=== PATIENT | male | born 1995 | race Caucasian/White ===

== ENCOUNTER 2024-03-17 17:59 | Emergency (ER) | payer OTHER ==
[2024-03-17 18:22] VITALS: RESP 18
--- NOTE | 2024-03-17 18:24 | ED ---
General Adult HPI - General Source: patient, RN notes reviewed Mode of arrival: ambulatory Limitations: no limitations <Molly Mazariegos - Last Filed: 03/17/24 18:23> - General Source: patient, RN notes reviewed Mode of arrival: ambulatory Limitations: no limitations <Marlene Banks - Last Filed: 03/18/24 02:42> - General Chief complaint: Recheck/Abnormal Lab/Rx Stated complaint: blood in stool Time Seen by Provider: 03/17/24 18:18 - History of Present Illness Initial comments: Quick [id number] male presents emergency department chief complaint of bright red blood per rectum. Patient states that over the past 6 months he has been experiencing what he believes to be an internal hemorrhoid that will sometimes turn into an external hemorrhoid with straining and have to reduce. He states that today he has had a large quantity of bright red blood in his stool and will occasionally experience rectal pain as well. (Molly Mazariegos) This is a 28-year-old male who presents to the emergency department for rectal bleeding. Describes this as bright red blood. States that this has been an issue intermittently over the last 6 months and he believes that he has a hemor rhoid. States that when he strains this protrudes out of the rectum. He had much more blood than usual today, prompting him to come to the emergency department. However, the blood is only on toilet paper when he wipes, it is not in the toilet bowl. This is not always painful. Not currently on any treatment for this. (Marlene Banks) - Related Data Previous Rx's Medication Instructions Recorded Hydrocortisone Suppository 25 mg RECTAL BID #24 suppositor 03/17/24 [Anusol-Hc] Allergies Allergy/AdvReac Type Severity Reaction Status Date / Time amoxicillin Allergy Anaphylaxis Verified 03/17/24 20:22 Review of Systems ROS Other: All systems not noted in ROS Statement are negative. <Molly Mazariegos - Last Filed: 03/17/24 18:23> ROS Other: All systems not noted in ROS Statement are negative. <Marlene Banks - Last Filed: 03/18/24 02:42> ROS Statement: Those systems with pertinent positive or pertinent negative responses have been documented in the HPI. Past Medical History Past Medical History: No Reported History History of Any Multi-Drug Resistant Organisms: None Reported Past Surgical History: No Surgical Hx Reported Past Psychological History: No Psychological Hx Reported Smoking Status: Vaper Past Alcohol Use History: Occasional Past Drug Use History: None Reported <Felton Mazariegosoe - Last Filed: 03/17/24 18:23> General Exam Limitations: no limitations <Felton Mazariegosoe - Last Filed: 03/17/24 18:23> Limitations: no limitations General appearance: alert, in no apparent distress Head exam: Present: atraumatic, normocephalic, normal inspection Respiratory exam: Present: normal lung sounds bilaterally. Absent: respiratory distress, wheezes, rales, rhonchi, stridor Cardiovascular Exam: Present: regular rate, normal rhythm, normal heart sounds. Absent: systolic murmur, diastolic murmur, rubs, gallop, clicks GI/Abdominal exam: Present: soft, normal bowel sounds. Absent: distended, tenderness, guarding, rebound, rigid Rectal exam: Present: normal inspection. Absent: hemorrhoids Neurological exam: Present: alert, oriented X3, CN II-XII intact Psychiatric exam: Present: normal affect, normal mood Skin exam: Present: warm, dry, intact, normal color. Absent: rash <Marlene Banks - Last Filed: 03/18/24 02:42> - General Exam Comments Initial Comments: Visual Physical Exam Vital signs reviewed General: Well-appearing, nontoxic, no acute distress. Head: Normocephalic, atraumatic Eyes: PERRLA, EOMI ENT: Airway patent Chest: Nonlabored breathing Skin: No visual rash, normal skin tone Neuro: Alert and oriented 3 Musculoskeletal: No gross abnormalities (Stieler,Molly) Course Vital Signs 03/17/24 03/17/24 18:18 21:22 Temperature 98 F 98.1 F Pulse Rate 72 75 Respiratory 18 18 Rate Blood Pressure 122/86 104/75 O2 Sat by Pulse 100 100 Oximetry Medical Decision Making <Molly Mazariegos - Last Filed: 03/17/24 18:23> - Lab Data Result diagrams: 03/17/24 19:35 03/17/24 19:35 <Marlene Banks - Last Filed: 03/18/24 02:42> - Medical Decision Making I completed the quick note portion of this chart signed Molly Mazariegos PA-C (Molly Mazariegos) This is a 28 year old male who presents to the emergency department for rectal bleeding. Was pt. sent in by a medical professional or institution? @ -No Did you speak to anyone other than the patient for history? @ -No Did you review nursing and triage notes? @ -Yes, and I agree, it is accurate with regards to the patient's symptoms. Were old charts reviewed? @ -No Differential Diagnosis? @ -Differential GI Bleed: Esophageal varices, aortoenteric fistula, Bibiana-Shannon, gastritis, peptic ulcer disease, diverticulosis, inflammatory bowel disease, hemorrhoids, fissure, colitis, malignancy, Meckel's diverticulum, this is not meant to be an all- inclusive list. EKG interpreted by me (3pts min.)? @ -Not obtained X-rays interpreted by me (1pt min.)? @ -Not obtained CT interpreted by me (1pt min.)? @ -Not obtained U/S interpreted by me (1pt. min.)? @ -Not obtained What testing was considered but not performed? (CT, X-rays, U/S, labs)? Why? @ -None What meds were considered but not given? Why? @ -None Did you discuss the management of the patient with other professionals? @ -No Did you reconcile home meds? @ -No Was smoking cessation discussed for >3mins.? @ -No Was critical care preformed (if so, how long)? @ -No Were there social determinants of health that impacted care today? How? (Homelessness, low income, unemployed, alcoholism, drug addiction, transportation, low edu. Level, literacy, decrease access to med. care, penitentiary, rehab)? @ -No Was there de-escalation of care discussed even if they declined? (Discuss DNR or withdrawal of care, Hospice)? @ -No What co-morbidities impacted this encounter? (DM, HTN, Smoking, COPD, CAD, Cancer, CVA, Hep., AIDS, mental health diagnosis, sleep apnea, morbid obesity)? @ -None Was patient admitted / discharged? @ -Discharged. Lab work unremarkable. There was not any active bleeding or obvious hemorrhoids on exam. The description of his symptoms is consistent with an internal hemorrhoid. He was given a prescription for hydrocortisone suppositories. We also discussed increasing fiber intake and stool softeners such as psyllium, and sitz bath's. Information for general surgery follow-up pr ovided to discuss further management. Case discussed with ED attending Dr. Schwarz. Return precautions reviewed in depth, the patient is instructed to return to the emergency department with any new, worsening, or concerning symptoms. Patient verbalized understanding. Undiagnosed new problem with uncertain prognosis? @ -None Drug Therapy requiring intensive monitoring for toxicity (Heparin, Nitro, Insulin, Cardizem)? @ -None Were any procedures done? @ -None Diagnosis/symptom? @ -Internal hemorrhoid Acute, or Chronic, or Acute on Chronic? @ -Chronic Uncomplicated (without systemic symptoms) or Complicated (systemic symptoms)? @ -Uncomplicated Side effects of treatment? @ -None Exacerbation, Progression, or Severe Exacerbation] @ -Potential progression Poses a threat to life or bodily function? @ -No (Marlene Banks) - Lab Data Lab Results 03/17/24 03/17/24 03/17/24 Range/Units 19:35 19:35 19:35 WBC 4.5 (3.8-10.6) k/uL RBC 4.65 (4.30-5.90) m/uL Hgb 14.0 (13.0-17.5) gm/dL Hct 41.6 (39.0-53.0) % MCV 89.4 (80.0-100.0) fL MCH 30.2 (25.0-35.0) pg MCHC 33.8 (31.0-37.0) g/dL RDW 12.7 (11.5-15.5) % Plt Count 215 (150-450) k/uL MPV 6.7 Neutrophils % 58 % Lymphocytes % 31 % Monocytes % 7 % Eosinophils % 3 % Basophils % 0 % Neutrophils # 2.6 (1.3-7.7) k/uL Lymphocytes # 1.4 (1.0-4.8) k/uL Monocytes # 0.3 (0-1.0) k/uL Eosinophils # 0.1 (0-0.7) k/uL Basophils # 0.0 (0-0.2) k/uL PT 12.1 (10.0-12.5) sec INR 1.1 (<1.2) APTT 26.1 (22.0-30.0) sec Sodium 137 (137-145) mmol/L Potassium 4.2 (3.5-5.1) mmol/L Chloride 104 (98-107) mmol/L Carbon Dioxide 30 (22-30) mmol/L Anion Gap 3 mmol/L BUN 9 (9-20) mg/dL Creatinine 1.00 (0.66-1.25) mg/dL Est GFR (CKD-EPI)AfAm >90 (>60 ml/min/1.73 sqM) Est GFR (CKD-EPI)NonAf >90 (>60 ml/min/1.73 sqM) Glucose 86 (74-99) mg/dL Calcium 9.2 (8.4-10.2) mg/dL Total Bilirubin 1.0 (0.2-1.3) mg/dL AST 50 (17-59) U/L ALT 67 H (4-49) U/L Alkaline Phosphatase 44 (38-126) U/L Total Protein 6.7 (6.3-8.2) g/dL Albumin 4.2 (3.5-5.0) g/dL Disposition <Molly Mazariegos - Last Filed: 03/17/24 18:23> Is patient prescribed a controlled substance at d/c from ED?: No Time of Disposition: 20:33 <Marlene Banks - Last Filed: 03/18/24 02:42> Clinical Impression: Internal hemorrhoid Disposition: HOME SELF-CARE Instructions (If sedation given, give patient instructions): Hemorrhoids (ED) Additional Instructions: Return to the emergency department with any new, worsening, or concerning symp toms. Use hydrocortisone suppositories twice daily for 2 weeks. You can use the hydrocortisone cream provided for any discomfort. Take stool softeners such as psyllium, follow a high-fiber diet, and you can also try sitz bath's. Contact the general surgery office listed below for further evaluation and discussion of additional management options. Prescriptions: Hydrocortisone Suppository [Anusol-Hc] 25 mg RECTAL BID #24 suppositor Referrals: [facility]inic [Primary Care Provider] - 1-2 days Moi Hendrix MD [STAFF PHYSICIAN] - 1-2 days
[2024-03-17] MEDS: HYDROCORTISONE 2.5% RECTAL CREAM 30 GM TUBE RECTAL STA (19:50)
[2024-03-17 19:53] LABS: Basophils % (A) 0 %; Eosinophils # (A) 0.1 k/uL (0-0.7); Eosinophils % (A) 3 %; HCT 41.6 % (39.0-53.0); Lymphocytes # (A) 1.4 k/uL (1.0-4.8); Lymphocytes % (A) 31 %; MCH 30.2 pg (25.0-35.0); MCHC 33.8 g/dL (31.0-37.0); MCV 89.4 fL (80.0-100.0); Mean Platelet Volume 6.7; Monocytes # (A) 0.3 k/uL (0-1.0); Monocytes % (A) 7 %; Neutrophils # (A) 2.6 k/uL (1.3-7.7); Neutrophils % (A) 58 %; Platelet Count 215 k/uL (150-450); RBC 4.65 m/uL (4.30-5.90); RDW 12.7 % (11.5-15.5); WBC 4.5 k/uL (3.8-10.6)
[2024-03-17 20:10] LABS: ALT 67 U/L (4-49); AST 50 U/L (17-59); African American GFR (CKD) >90 (>60 ml/min/1.73 sqM); Albumin 4.2 g/dL (3.5-5.0); Alkaline Phosphatase 44 U/L (38-126); Anion Gap 3 mmol/L; Blood Urea Nitrogen 9 mg/dL (9-20); Calcium 9.2 mg/dL (8.4-10.2); Carbon Dioxide 30 mmol/L (22-30); Chloride 104 mmol/L (98-107); Glucose 86 mg/dL (74-99); Non-African American GFR(CKD) >90 (>60 ml/min/1.73 sqM); Potassium 4.2 mmol/L (3.5-5.1); Sodium 137 mmol/L (137-145); Total Protein 6.7 g/dL (6.3-8.2)
[2024-03-17 20:13] LABS: INR 1.1 (<1.2); Partial Thromboplastin Time 26.1 sec (22.0-30.0); Prothrombin Time 12.1 sec (10.0-12.5)
[2024-03-17] MEDS: HYDROCORTISONE SUPPOSITORY 25 MG SUPP RECTAL STA (20:17)
[2024-03-17 21:24] VITALS: BP 104/75; PULSE 75; TEMP 98.1
== END 2024-03-17 21:24 | disposition home or self-care (01) ==
LOC: EC 17:59
CPT/HCPCS: 36415; 80053; 85025; 85610; 85730; 99284

== ENCOUNTER 2024-06-10 22:41 | Emergency (ER) | payer OTHER ==
--- NOTE | 2024-06-10 23:42 | ED ---
Nausea/Vomiting/Diarrhea HPI - General Chief complaint: Nausea/Vomiting/Diarrhea Stated complaint: Vomit Blood Time Seen by Provider: 06/10/24 23:41 Source: patient, RN notes reviewed, old records reviewed Mode of arrival: ambulatory Limitations: no limitations - History of Present Illness Initial comments: 28-year-old male presenting to the ER with a chief complaint of nausea and vomiting. Patient states since this morning he has been unable to keep anything down and having persistent nausea and feeling like he is going to throw up. Patient reports he tried to eat cereal this morning but states he threw it up. He states while eating the cereal he felt a burning sensation in his throat. He does report a history of acid reflux and has not been taking his medications as prescribed. Patient does report 1 episode of bright red streaking in his emesis. He denies any blood thinner use. Patient reports a mild epigastric abdominal pain. No history of bowel surgeries. Patient denies any fevers or chills. He has not tried any medications for his symptoms at this time. He has tried taking a shower without relief. He denies any cough, congestion, runny nose, chest pain, shortness of breath, diarrhea/constipation, urinary complaints or peripheral edema. - Related Data Previous Rx's Medication Instructions Recorded Hydrocortisone Suppository 25 mg RECTAL BID #24 suppositor 03/17/24 [Anusol-Hc] Allergies Allergy/AdvReac Type Severity Reaction Status Date / Time amoxicillin Allergy Anaphylaxis Verified 06/10/24 22:45 Review of Systems ROS Statement: Those systems with pertinent positive or pertinent negative responses have been documented in the HPI. ROS Other: All systems not noted in ROS Statement are negative. Past Medical History Past Medical History: No Reported History History of Any Multi-Drug Resistant Organisms: None Reported Past Surgical History: Tonsillectomy Past Psychological History: No Psychological Hx Reported Smoking Status: Vaper Past Alcohol Use History: Occasional Past Drug Use History: None Reported General Exam Limitations: no limitations General appearance: alert, in no apparent distress Respiratory exam: Present: normal lung sounds bilaterally. Absent: respiratory distress, wheezes, rales, rhonchi, stridor Cardiovascular Exam: Present: normal rhythm, tachycardia, normal heart sounds GI/Abdominal exam: Present: soft, tenderness (mild RUQ), normal bowel sounds Neurological exam: Present: alert, oriented X3, CN II-XII intact Skin exam: Present: warm, dry, intact, normal color. Absent: rash Course Vital Signs 06/10/24 06/11/24 22:42 00:50 Temperature 97.5 F L 97.9 F Pulse Rate 115 H 112 H Respiratory 22 18 Rate Blood Pressure 114/83 132/66 O2 Sat by Pulse 98 99 Oximetry - Reevaluation(s) Reevaluation #1: 06/11/24 02:15 Case discussed with [facility] physician, Dr. Spaulding, who advised on transfer for GI consultation. 06/11/24 02:39 Case discussed with [facility] lens generator, Dr. Solano who accepts transfer. Medical Decision Making - Medical Decision Making Was pt. sent in by a medical professional or institution (, PA, CLOCK AND WATCH HANDS DIPPER, urgent care, hospital, or senior living...) When possible be specific @ -No Did you speak to anyone other than the patient for history (EMS, parent, family, police, friend...)? What history was obtained from this source @ -Significant other, at bedside, aiding in HPI and past medical history. Did you review nursing and triage notes (agree or disagree)? Why? @ -I reviewed and agree with nursing and triage notes Were old charts reviewed (outside hosp., previous admission, EMS record, old EKG, old radiological studies, urgent care reports/EKG's, senior living records)? Report findings @ -I reviewed ER visit from 03-17-2024. Patient evaluated for rectal bleeding. Patient diagnosed with internal hemorrhoid and given prescription for hydro cortisone suppository. Differential Diagnosis (chest pain, altered mental status, abdominal pain women, abdominal pain men, vaginal bleeding, weakness, fever, dyspnea, syncope, headache, dizziness, GI bleed, back pain, seizure, CVA, palpatations, mental health, musculoskeletal)? @ -Differential Abdominal Pain Men:Appendicitis, cholecystitis, diverticulosis, ischemic bowel, pancreatitis, hepatitis, UTI, gastroenteritis, AAA, incarcerated hernia, bowel obstruction, constipation, inflammatory bowel, hepatitis, peptic ulcer disease, splenic infarction, perforated viscus, testicular torsion, this is not meant to be an all-inclusive list EKG interpreted by me (3pts min.). @ -As above X-rays interpreted by me (1pt min.). @ -None done CT interpreted by me (1pt min.). @ -CT abdomen pelvis with IV contrast showing possibly multifocal uncomplicated acute colitis. Poorly distended bladder has mild to moderate concentric wall thickening. Moderate to severe rectal fecal prominence or constipation. No bowel obstruction. U/S interpreted by me (1pt. min.). @ -Gallbladder ultrasound negative for stones or acute evidence of acute cholecystitis. What testing was considered but not performed or refused? (CT, X-rays, U/S, labs)? Why? @ -None What meds were considered but not given or refused? Why? @ -None Did you discuss the management of the patient with other professionals (professionals i.e. Dr., PA, CLOCK AND WATCH HANDS DIPPER, lab, RT, psych nurse, health care social worker, siphoner, teacher, amphibious operations officer, case preparer and liner)? Give summary @ -Case was discussed with [facility] physician, Dr. Spaulding, who advised on transfer for gastroenterology consultation. Case discussed with [facility], Dr. Solano, who accepts transfer. Was smoking cessation discussed for >3mins.? @ -I discussed smoking cessation for greater than 3 minutes. The risk of smoking were discussed with the patient including but not limited to risks of cancer, stroke, coronary artery disease and COPD. Also discussed with patient were multiple methods of quitting smoking. Lastly we discussed the financial cost of smoking. Was critical care preformed (if so, how long)? @ -Yes 31 minutes. Were there social determinants of health that impacted care today? How? (Homelessness, low income, unemployed, alcoholism, drug addiction, transportation, low edu. Level, literacy, decrease access to med. care, retirement, rehab)? @ -No Was there de-escalation of care discussed even if they declined (Discuss DNR or withdrawal of care, Hospice)? DNR status @ -No What co-morbidities impacted this encounter? (DM, HTN, Smoking, COPD, CAD, Cancer, CVA, ARF, Chemo, Hep., AIDS, mental health diagnosis, sleep apnea, morbid obesity)? @ -None Was patient admitted / discharged? Hospital course, mention meds given and route, prescriptions, significant lab abnormalities, going to OR and other pertinent info. @ -Transferred. 28-year-old male presented the ER with a chief complaint of persistent nausea and vomiting. Patient seen here on 03-17-2024 for rectal blee ding diagnosed with internal hemorrhoids. History and physical exam completed. Vitals upon arrival remarkable for a temperature 97.5, heart rate 115, respiratory rate 22, blood pressure 114/83, oxygen saturation 98% on room air. Patient no signs of acute distress nontoxic-appearing. Exam remarkable for mild right upper quadrant abdominal tenderness with normal bowel sounds. No rebound or guarding. No active vomiting on exam. Laboratory studies and gallbladder ultrasound will be obtained along with symptomatic control, patient is agreeable. CBC remarkable for a leukocytosis of 17.6 with a left shift. Sodium 142, potassium 4.9, chloride 104. Lactic of 9.7. Total bilirubin 1.1 AST 70, ALT 58. Lipase 38. Patient given 2 L IV bolus in the ER for lactic acidosis. Patient also started on maintenance fluids at 130cc per hour. Patient received IV Pepcid, Zofran for symptom control with improvement on reevaluation. Gallbladder ultrasound negative. CT performed at that time given laboratory study abnormalities. CT abdomen pelvis showing possible multifocal uncomplic ated acute colitis. Due to concern of dehydration and colitis rule out inflammatory bowel disease admission was considered and discussed with [facility] physician, Dr. Spaulding, who advised on transfer for gastroenterology consultation. Case was then discussed with [facility], Dr. Solano, who accepts transfer. Patient remained stable throughout ER evaluation. Patient is agreeable for transfer. Patient transferred via EMS to [facility] for further evaluation and treatment. Case discussed with the attending, Dr. Power. Undiagnosed new problem with uncertain prognosis? @ -No Drug Therapy requiring intensive monitoring for toxicity (Heparin, Nitro, Insulin, Cardizem)? @ -No Were any procedures done? @ -No Diagnosis/symptom? @ -Leukocytosis/lactic acidosis/acute colitis Acute, or Chronic, or Acute on Chronic? @ -Acute Uncomplicated (without systemic symptoms) or Complicated (systemic symptoms)? @ -Complicated Side effects of treatment? @ -No Exacerbation, Progression, or Severe Exacerbation? @ -No Poses a threat to life or bodily function? How? (Chest pain, USA, VT, pneumonia, PE, COPD, DKA, ARF, appy, cholecystitis, CVA, Diverticulitis, Homicidal, Suicidal, threat to staff... and all critical care pts) @ -Yes - Lab Data Result diagrams: 06/10/24 23:15 06/10/24 23:15 Lab Results 06/10/24 06/10/24 06/10/24 Range/Units 23:15 23:15 23:15 WBC 17.6 H (3.8-10.6) k/uL RBC 5.17 (4.30-5.90) m/uL Hgb 16.1 (13.0-17.5) gm/dL Hct 46.6 (39.0-53.0) % MCV 90.2 (80.0-100.0) fL MCH 31.1 (25.0-35.0) pg MCHC 34.5 (31.0-37.0) g/dL RDW 12.7 (11.5-15.5) % Plt Count 273 (150-450) k/uL MPV 8.1 Neutrophils % 84 % Lymphocytes % 11 % Monocytes % 4 % Eosinophils % 0 % Basophils % 0 % Neutrophils # 14.8 H (1.3-7.7) k/uL Lymphocytes # 1.9 (1.0-4.8) k/uL Monocytes # 0.7 (0-1.0) k/uL Eosinophils # 0.0 (0-0.7) k/uL Basophils # 0.0 (0-0.2) k/uL Sodium 142 (137-145) mmol/L Potassium 4.9 (3.5-5.1) mmol/L Chloride 104 (98-107) mmol/L Carbon Dioxide 13 L (22-30) mmol/L Anion Gap 25 mmol/L BUN 14 (9-20) mg/dL Creatinine 1.18 (0.66-1.25) mg/dL Est GFR (CKD-EPI)AfAm >90 (>60 ml/min/1.73 sqM) Est GFR (CKD-EPI)NonAf 84 (>60 ml/min/1.73 sqM) Glucose 59 L (74-99) mg/dL POC Glucose (mg/dL) (70-110) mg/dL POC Glu Commercial Account Officer ID Lactic Ac Sepsis Rflx Plasma Lactic Acid Cesar 9.7 H* (0.7-2.0) mmol/L Calcium 9.4 (8.4-10.2) mg/dL Total Bilirubin 1.1 (0.2-1.3) mg/dL AST 70 H (17-59) U/L ALT 58 H (4-49) U/L Alkaline Phosphatase 63 (38-126) U/L Total Protein 8.5 H (6.3-8.2) g/dL Albumin 5.6 H (3.5-5.0) g/dL Amylase 43 (30-110) U/L Lipase 38 (23-300) U/L Urine Color Urine Appearance (Clear) Urine pH (5.0-8.0) Ur Specific Brodnax (1.001-1.035) Urine Protein (Negative) Urine Glucose (UA) (Negative) Urine Ketones (Negative) Urine Blood (Negative) Urine Nitrite (Negative) Urine Bilirubin (Negative) Urine Urobilinogen (<2.0) mg/dL Ur Leukocyte Esterase (Negative) Influenza Type A (PCR) (Not Detectd) Influenza Type B (PCR) (Not Detectd) RSV (PCR) (Not Detectd) SARS-CoV-2 (PCR) (Not Detectd) 06/11/24 06/11/24 06/11/24 Range/Units 00:25 00:39 00:45 WBC (3.8-10.6) k/uL RBC (4.30-5.90) m/uL Hgb (13.0-17.5) gm/dL Hct (39.0-53.0) % MCV (80.0-100.0) fL MCH (25.0-35.0) pg MCHC (31.0-37.0) g/dL RDW (11.5-15.5) % Plt Count (150-450) k/uL MPV Neutrophils % % Lymphocytes % % Monocytes % % Eosinophils % % Basophils % % Neutrophils # (1.3-7.7) k/uL Lymphocytes # (1.0-4.8) k/uL Monocytes # (0-1.0) k/uL Eosinophils # (0-0.7) k/uL Basophils # (0-0.2) k/uL Sodium (137-145) mmol/L Potassium (3.5-5.1) mmol/L Chloride (98-107) mmol/L Carbon Dioxide (22-30) mmol/L Anion Gap mmol/L BUN (9-20) mg/dL Creatinine (0.66-1.25) mg/dL Est GFR (CKD-EPI)AfAm (>60 ml/min/1.73 sqM) Est GFR (CKD-EPI)NonAf (>60 ml/min/1.73 sqM) Glucose (74-99) mg/dL POC Glucose (mg/dL) 52 L (70-110) mg/dL POC Glu Commercial Account Officer ID Maile Granda Lactic Ac Sepsis Rflx Y Plasma Lactic Acid Cesar (0.7-2.0) mmol/L Calcium (8.4-10.2) mg/dL Total Bilirubin (0.2-1.3) mg/dL AST (17-59) U/L ALT (4-49) U/L Alkaline Phosphatase (38-126) U/L Total Protein (6.3-8.2) g/dL Albumin (3.5-5.0) g/dL Amylase (30-110) U/L Lipase (23-300) U/L Urine Color Urine Appearance (Clear) Urine pH (5.0-8.0) Ur Specific Bro[place]ax (1.001-1.035) Urine Protein (Negative) Urine Glucose (UA) (Negative) Urine Ketones (Negative) Urine Blood (Negative) Urine Nitrite (Negative) Urine Bilirubin (Negative) Urine Urobilinogen (<2.0) mg/dL Ur Leukocyte Esterase (Negative) Influenza Type A (PCR) Not Detected (Not Detectd) Influenza Type B (PCR) Not Detected (Not Detectd) RSV (PCR) Not Detected (Not Detectd) SARS-CoV-2 (PCR) Not Detected (Not Detectd) 06/11/24 06/11/24 06/11/24 Range/Units 01:00 01:37 02:02 WBC (3.8-10.6) k/uL RBC (4.30-5.90) m/uL Hgb (13.0-17.5) gm/dL Hct (39.0-53.0) % MCV (80.0-100.0) fL MCH (25.0-35.0) pg MCHC (31.0-37.0) g/dL RDW (11.5-15.5) % Plt Count (150-450) k/uL MPV Neutrophils % % Lymphocytes % % Monocytes % % Eosinophils % % Basophils % % Neutrophils # (1.3-7.7) k/uL Lymphocytes # (1.0-4.8) k/uL Monocytes # (0-1.0) k/uL Eosinophils # (0-0.7) k/uL Basophils # (0-0.2) k/uL Sodium (137-145) mmol/L Potassium (3.5-5.1) mmol/L Chloride (98-107) mmol/L Carbon Dioxide (22-30) mmol/L Anion Gap mmol/L BUN (9-20) mg/dL Creatinine (0.66-1.25) mg/dL Est GFR (CKD-EPI)AfAm (>60 ml/min/1.73 sqM) Est GFR (CKD-EPI)NonAf (>60 ml/min/1.73 sqM) Glucose (74-99) mg/dL POC Glucose (mg/dL) 57 L 64 L (70-110) mg/dL POC Glu Commercial Account Officer ID Maile Hobbsnnhattie Granda Lactic Ac Sepsis Rflx Plasma Lactic Acid Cesar (0.7-2.0) mmol/L Calcium (8.4-10.2) mg/dL Total Bilirubin (0.2-1.3) mg/dL AST (17-59) U/L ALT (4-49) U/L Alkaline Phosphatase (38-126) U/L Total Protein (6.3-8.2) g/dL Albumin (3.5-5.0) g/dL Amylase (30-110) U/L Lipase (23-300) U/L Urine Color Colorless Urine Appearance Clear (Clear) Urine pH 5.0 (5.0-8.0) Ur Specific Brodnax 1.018 (1.001-1.035) Urine Protein Trace H (Negative) Urine Glucose (UA) Negative (Negative) Urine Ketones 3+ H (Negative) Urine Blood Negative (Negative) Urine Nitrite Negative (Negative) Urine Bilirubin Negative (Negative) Urine Urobilinogen <2.0 (<2.0) mg/dL Ur Leukocyte Esterase Negative (Negative) Influenza Type A (PCR) (Not Detectd) Influenza Type B (PCR) (Not Detectd) RSV (PCR) (Not Detectd) SARS-CoV-2 (PCR) (Not Detectd) - EKG Data -: EKG Interpreted by Me EKG Comments: EKG taken at 00: 52 showing a sinus tachycardia. No acute ST segment elevations. No T wave abnormalities. Ventricular rate 110, UT interval 145, QRS duration 97, QT/QTc 331/396. - Radiology Data Radiology results: report reviewed, image reviewed Disposition Clinical Impression: Lactic acidosis, Leukocytosis, Acute colitis Disposition: OTHER INSTITUTION NOT DEFINED Condition: Stable Referrals: [facility],Clinic [Primary Care Provider] - 1-2 days Time of Disposition: 02:52 - Out of Hospital Transfer - Req. Specs Out of Hospital Transfer - Requested Specifics: Other Emergency Center ([facility] )
[2024-06-10 23:57] LABS: Basophils % (A) 0 %; Eosinophils % (A) 0 %; HCT 46.6 % (39.0-53.0); HGB 16.1 gm/dL (13.0-17.5); Lymphocytes # (A) 1.9 k/uL (1.0-4.8); Lymphocytes % (A) 11 %; MCH 31.1 pg (25.0-35.0); MCHC 34.5 g/dL (31.0-37.0); MCV 90.2 fL (80.0-100.0); Mean Platelet Volume 8.1; Monocytes # (A) 0.7 k/uL (0-1.0); Monocytes % (A) 4 %; Neutrophils # (A) 14.8 k/uL (1.3-7.7); Neutrophils % (A) 84 %; Platelet Count 273 k/uL (150-450); RBC 5.17 m/uL (4.30-5.90); RDW 12.7 % (11.5-15.5); WBC 17.6 k/uL (3.8-10.6)
[2024-06-11 00:01] LABS: ALT 58 U/L (4-49); AST 70 U/L (17-59); African American GFR (CKD) >90 (>60 ml/min/1.73 sqM); Albumin 5.6 g/dL (3.5-5.0); Alkaline Phosphatase 63 U/L (38-126); Amylase 43 U/L (30-110); Anion Gap 25 mmol/L; Blood Urea Nitrogen 14 mg/dL (9-20); Calcium 9.4 mg/dL (8.4-10.2); Carbon Dioxide 13 mmol/L (22-30); Chloride 104 mmol/L (98-107); Glucose 59 mg/dL (74-99); Lipase 38 U/L (23-300); Non-African American GFR(CKD) 84 (>60 ml/min/1.73 sqM); Potassium 4.9 mmol/L (3.5-5.1); Sodium 142 mmol/L (137-145); Total Bilirubin 1.1 mg/dL (0.2-1.3); Total Protein 8.5 g/dL (6.3-8.2)
[2024-06-11] MEDS: FAMOTIDINE 20 MG/2 ML VIAL IV STA (00:28)
[2024-06-11] MEDS: ONDANSETRON 4 MG/2 ML VIAL IVP STA (00:28)
[2024-06-11] MEDS: SODIUM CHLORIDE 0.9% 1,000 ML IV STA ×3 (00:34→03:01)
[2024-06-11 00:48] LABS: Glucose,Whole Blood 52 mg/dL (70-110)
[2024-06-11 00:54] VITALS: RESP 18
--- NOTE | 2024-06-11 00:55 | US ---
EXAMINATION TYPE: US gallbladder DATE OF EXAM: 06/11/2024 COMPARISON: NONE CLINICAL INDICATION: Male, 28 years old with history of nausea and vomiting; N&V TECHNIQUE: Grayscale and color Doppler imaging of the right upper quadrant was performed. FINDINGS: EXAM MEASUREMENTS: Liver Length: 14.5 cm Gallbladder Wall: 0.1 cm CBD: 0.5 cm Right Kidney: 10.0 x 3.5 x 4.8 cm CATERER HELPER NOTES: Pt not able to tolerate probe pressure well during exam Pancreas: wnl, tail obscured by overlying bowel gas Liver: Visualized portions appeared wnl Gallbladder: wnl Evidence for sonographic Yao's sign: No CBD: wnl Right Kidney: No evidence of hydro Slightly suboptimal study. IMPRESSION: No gallstones or ultrasound evidence for acute cholecystitis. [facility], , 06/11/2024 12:53 AM
--- NOTE | 2024-06-11 01:23 | CT ---
EXAMINATION TYPE: CT abdomen pelvis w con DATE OF EXAM: 06/11/2024 COMPARISON: None. HISTORY: coughing up blood and n/v CT DLP: 600.9 mGycm, Automated Exposure Control for Dose Reduction was Utilized. CONTRAST: CT scan of the abdomen and pelvis is performed without oral and with IV Contrast, patient injected wi th 100ml mL of Isovue 300. FINDINGS: LUNG BASES: No significant abnormality is appreciated. LIVER/GB: Liver is heterogeneously hypodense consistent with diffuse fatty infiltrative hepatocellula r disease. No biliary dilatation. PANCREAS: No significant abnormality is seen. SPLEEN: No significant abnormality is seen. ADRENALS: No significant abnormality is seen. KIDNEYS: Symmetric excretion without hydronephrosis. [id number] concentric wall thickening in t he poorly distended urinary bladder. BOWEL: Syzz-yp-lovkaeun wall thickening from the hepatic flexure to the distal transverse colon. No a bnormal small or large bowel dilatation. There is moderate to severe fecal prominence in the rectum. Mild wall thickening in the right colon. Cecum is low-lying into the right pelvis. PROSTATE/SEMINAL VESICLES: No gross abnormality seen. LYMPH NODES: No greater than 1cm abdominal or pelvic lymph nodes are appreciated. OSSEOUS STRUCTURES: No significant abnormality is seen. OTHER: No significant additional abnormality is seen. IMPRESSION: 1. Possible multifocal uncomplicated acute colitis. Differential includes infectious and/or inflammat ory etiologies. Correlate clinically. 2. Poorly distended bladder has mild to moderate concentric wall thickening. Cannot exclude acute debbie dder infection in the appropriate setting, correlate clinically. [facility], , 06/11/2024 1:20 AM
[2024-06-11 01:39] LABS: Glucose,Whole Blood 57 mg/dL (70-110)
[2024-06-11 01:45] LABS: Appearance,Urine Clear (Clear); Bilirubin,Urine Negative (Negative); Blood,Urine Negative (Negative); Color,Urine Colorless; Glucose,Urine (UA) Negative (Negative); Ketones,Urine 3+ (Negative); Leukocyte Esterase,Urine Negative (Negative); Nitrite,Urine Negative (Negative); Protein,Urine Trace (Negative); Specific Gravity,Urine 1.018 (1.001-1.035); Urobilinogen,Urine <2.0 mg/dL (<2.0)
[2024-06-11 02:04] LABS: Glucose,Whole Blood 64 mg/dL (70-110)
[2024-06-11 02:57] LABS: Glucose,Whole Blood 71 mg/dL (70-110)
[2024-06-11 03:28] VITALS: BP 108/52; PULSE 108; TEMP 98.4
== END 2024-06-11 03:48 | disposition other institution (70) ==
LOC: EC 22:41
DX: K52.9 Noninfective gastroenteritis and colitis, unspecified (principal); E87.20 Acidosis, unspecified; D72.829 Elevated white blood cell count, unspecified; F17.290 Nicotine dependence, other tobacco product, uncomplicated; Z88.0 Allergy status to penicillin
CPT/HCPCS: 36415 ×2; 93005; 80053; 82150; 83605; 83690; 85025; 81003; 87636; 76705; 74177; 99291; 96374; 96375; 96361 ×3; 99406; J2405; J3490; Q9967